=== PATIENT | male | born 1975 | race Hispanic/Latino ===

== ENCOUNTER 2017-10-21 10:43 | Emergency (ER) | payer OTHER ==
[~2017-10-21] VITALS: Ht 172.7 cm; Wt 108.9 kg
[2017-10-21 10:56] VITALS: BP 157/105
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
[2017-10-21] MEDS ORDERED: TRIPLE ANTIBIOTIC OINTMENT TP ONE (11:55)
[2017-10-21 12:20] VITALS: BP 157/105
== END 2017-10-21 12:10 | disposition home or self-care (01) ==
LOC: ER 10:43
DX: T23.221A Burn of second degree of single right finger (nail) except thumb, initial encounter (principal); F17.210 Nicotine dependence, cigarettes, uncomplicated; W86.8XXA Exposure to other electric current, initial encounter; Y93.89 Activity, other specified; Y92.69 Other specified industrial and construction area as the place of occurrence of the external cause; Y99.8 Other external cause status
CPT/HCPCS: 99283